=== PATIENT | female | born 1945 | race Asian ===

== ENCOUNTER → 2016-04-21 | Outpatient (CLI) | payer OTHER ==
--- NOTE | 2016-04-21 20:09 | US ---
Left Breast Ultrasound Indication: Palpable lump lower left breast. Increasing in size mass on mammograms. Technique: The left breast and left axilla were scanned with a high-resolution linear transducer by vladimir burgos research editor and me. Correlation made with mammograms and targeted physical exam. Comparison: Screening mammograms dated February 2012 and September 2012 and diagnostic mammograms perform ed April 21, 2016. Findings: The palpable mass in the anterior lower left breast 5 o'clock position, 2.4 x 2.2 x 1.5 cm contains echogenic microcalcifications and intraluminal blood flow on color Doppler imaging. No addit ional nodules throughout the surveyed left breast. No enlarged lymph nodes in the axilla. Impression: Suspicious 2.4 cm mass left breast corresponds to the palpable lump. BI-RADS 5: Highly Suspicious For Malignancy. Recommendation: Proceed with left breast ultrasound-guided core biopsy. I discussed the findings and recommendations with the patient. She plans on proceeding with ultrasound-guided breast biopsy. The findings and recommendations were discussed with Dr. Sonia Mullins shortly after study completion a t 5:00 PM today. An order for left breast ultrasound-guided biopsy can be faxed to [phone].
--- NOTE | 2016-04-21 20:11 | MA ---
Digital Mammogram Left Breast With iCAD Analysis Clinical Indications: Palpable mass lower left breast. Technique: Standard cephalocaudal projection is obtained. Digital breast tomosynthesis was performed in the MLO projection with reconstruction at 1.0 mm slice thickness and composite MLO views reconstru cted. This examination is processed by the iCAD computer aided detection system. Comparison: Mammograms dated September 30, 2015 and February 26, 2012 Breast density: Type C: Heterogeneously dense. Findings: CAD was reviewed. A lobulated 2.5 x 2.0 cm mass, containing heterogeneous pleomorphic micro calcifications in the anterior left breast 6 o'clock position has increased in size since September 2015 ( previously measured 2.0 x 1.2 cm). The left mammograms are otherwise negative. No discernible enlarge d lymph nodes in the axilla. Impression: Suspicious mass in the lower anterior left breast, containing pleomorphic microcalcificat ions, has increased in size since September 2015. BI-RADS 5: Highly Suspicious For Malignancy. Recommendation: Proceed with left breast ultrasound today to optimally characterize and correlate wit h palpable abnormality. [facility] will send a result letter to the patient. Negative mammography should not preclude additional workup of a clinically suspicious finding. The patient's information is entered into a reminder system with a target due date for her next mammo gram.
== END ==
LOC: FIMAGING 15:11
PROVIDERS: ATTEND Family Medicine
DX: Z12.39 Encounter for other screening for malignant neoplasm of breast (principal); N63 Unspecified lump in breast
CPT/HCPCS: 76641; G0206; G0279

== ENCOUNTER → 2016-05-06 | Outpatient (CLI) | payer OTHER ==
--- NOTE | 2016-05-06 12:31 | US ---
Vacuum-Assisted Ultrasound-Guided Core Biopsy Left Breast History: Mass 5 o'clock radial 2 cm from the nipple Technique: Following informed consent, the mass within the 5 o'clock position of the left breast, 2 cm from the nipple was localized, from the outer approach. The skin was marked and then prepped and d raped in sterile fashion. Following local anesthesia with 1% lidocaine, lidocaine mixed with epinephr ine was injected deeper within the breast tissue. A small skin dev was placed on the skin surface, through which the 12-gauge Suros vacuum-assisted core biopsy needle was advanced with ultrasound guid ance to the deep margin of the mass. Numerous core biopsy samples were obtained through the mass. A [employer] titanium clip was then placed in the biopsy bed. Marcaine was then injected at the biopsy site f or prolonged analgesia. Hemostasis was obtained, a sterile pressure dressing was applied and the ele ent sent for a postprocedural mammogram to document clip placement and to observe for postprocedural hematoma formation. She was then discharged without complication, with instructions to call us with a ny thoughts, complications or concerns. Impression: 1. Successful ultrasound-guided core biopsy of mass left breast 5 o'clock position. 2. Successful deployment of Suros titanium clip positioned immediately adjacent to the biopsy site.
--- NOTE | 2016-05-06 13:01 | MA ---
Diagnostic Digital Left Mammogram History: Post ultrasound-guided breast biopsy. Comparison: April 21, 2016. Technique: 2 views of the left breast. Density: B Findings: There is no postprocedural hematoma. This arose clip is present at the lower inner margin o f the patient's mass.. Impression: Excellent postprocedural mammogram.. Recommendation: The patient's initial mammogram and ultrasound are extremely worrisome for breast mal ignancy possibly mucinous or colloid carcinoma. A negative biopsy result should not defer surgical co nsultation in this patient. BI-RADS 5. Highly suspicious imaging for breast malignancy.
[2016-05-15 08:24] LABS: ACCESSION # HR17-5796 (()); INTERPRETATION See Comments (())
[2016-05-20 12:16] LABS: HER2 FISH RESULT SUMMARY Negative
[2016-05-20 12:19] LABS: FIXATIVE Formalin; HER2 FISH TISSUE ID 17S-363-A1
== END ==
LOC: FIMAGING 11:31
PROVIDERS: ATTEND Family Medicine
PROC: 0HBU3ZX Excision of Left Breast, Percutaneous Approach, Diagnostic (ICD-10-PCS; principal; 2016-05-06)
PROC: BH01ZZZ Plain Radiography of Left Breast (ICD-10-PCS; 2016-05-06)
DX: C50.912 Malignant neoplasm of unspecified site of left female breast (principal); R92.0 Mammographic microcalcification found on diagnostic imaging of breast; Z17.0 Estrogen receptor positive status [ER+]
CPT/HCPCS: 19083; 88305; 88341; 88342; 88360; 88361; G0206

== ENCOUNTER → 2016-06-03 | Outpatient (CLI) | payer OTHER | LOC: FIMAGING 09:36 | PROVIDERS: ATTEND Surgery | PROC: C71L1ZZ Planar Nuclear Medicine Imaging of Upper Chest Lymphatics using Technetium 99m (Tc-99m) (ICD-10-PCS; principal; 2016-06-03) | DX: C50.912 Malignant neoplasm of unspecified site of left female breast (principal) | CPT/HCPCS: 78195; A9520 ==

== ENCOUNTER → 2016-08-13 | Outpatient (CLI) | payer OTHER | LOC: FIMAGING 10:18 | PROVIDERS: ATTEND Internal Medicine Hematology & Oncology | DX: Z13.820 Encounter for screening for osteoporosis (principal); M81.0 Age-related osteoporosis without current pathological fracture; Z78.0 Asymptomatic menopausal state ==

== ENCOUNTER → 2017-05-20 | Outpatient (CLI) | payer OTHER | LOC: FIMAGING 08:51 | PROVIDERS: ATTEND Family Medicine | DX: N63.20 Unspecified lump in the left breast, unspecified quadrant (principal); Z85.3 Personal history of malignant neoplasm of breast ==

== ENCOUNTER → 2017-06-02 | Outpatient (CLI) | payer OTHER | LOC: FIMAGING 08:16 | PROVIDERS: ATTEND Surgery | PROC: C71L1ZZ Planar Nuclear Medicine Imaging of Upper Chest Lymphatics using Technetium 99m (Tc-99m) (ICD-10-PCS; principal; 2017-06-02) | DX: C50.919 Malignant neoplasm of unspecified site of unspecified female breast (principal) | CPT/HCPCS: 78195; A9520 ==

== ENCOUNTER 2017-10-22 12:33 | Inpatient (IN) | payer OTHER ==
[2017-10-22] MEDS ORDERED: HYDROmorphONE/DILAUDID 2 MG/ML INJ IVP ONE ×2 (12:53→15:10)
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
[2017-10-22] MEDS ORDERED: IOPAMIDOL (ISOVUE-300) 100 ML BTL ONE ×2 (13:32→16:37)
--- NOTE | 2017-10-22 15:59 | PDPROPOC ---
Sedation Plan of Care Sedation Plan of Care: vital signs stable, mental status noted, patient educated of risks, benefits, alternatives, patient can tolerate sedation ASA Classification: ASA 3 Planned drugs: fentanyl, midazolam Mallampati Score: Class 1 Mallampati Reference Image: Patient passed 3-3-2 rule?: Yes
--- NOTE | 2017-10-22 15:59 | PDHPUP ---
History & Physical Update H&P update statement: This history and physical update is based on an assessment of the patient which was completed after admission or registration (within 24 hours), but prior to the surgery/procedure. H&P update: H&P reviewed & patient examined (Active extravasation splenic hemorrhage; plan for transarterial embolization), no change in patient's condition since H&P completed
[2017-10-22] MEDS ORDERED: ONDANSETRON 4 MG/2 ML VIAL ONE (16:13)
[2017-10-22] MEDS ORDERED: fentaNYL 100 MCG/2 ML INJ IVP PRN (16:13)
[2017-10-22] MEDS ORDERED: NALOXONE HCL 0.4 MG/ML INJ ONE (16:13)
[2017-10-22] MEDS ORDERED: NALOXONE HCL 0.4 MG/ML INJ IVP PRN ×2 (16:13→18:05)
[2017-10-22] MEDS ORDERED: MEPERIDINE 25 MG/ML SYR IVP PRN (16:13)
[2017-10-22] MEDS ORDERED: FLUMAZENIL 0.5 MG/5 ML MDV IVP ONE (16:14)
[2017-10-22] MEDS ORDERED: fentaNYL 100 MCG/2 ML INJ ONE (16:14)
[2017-10-22] MEDS ORDERED: MIDAZOLAM 2 MG/2 ML VIAL ONE (16:14)
[2017-10-22] MEDS ORDERED: NS 1,000 ML IV SCH (16:15)
[2017-10-22] MEDS ORDERED: LIDOCAINE 1% 300 MG/30 ML SDV ONE (17:01)
--- NOTE | 2017-10-22 17:41 | PDRADPN ---
Radiology Procedure Note Date of Procedure: 10/22/17 Radiologist: Elias Adams Anesthesia: Other (Specify) (Fentanyl) Pre-op Diagnosis: Trauma; splenic laceration Post-op Diagnosis: Trauma; splenic laceration Indication: Active extravasation splenic laceration Procedure: Transarterial embolization Finding(s): Successful superselective embolization of midpole splenic artery hemorrhage resulting in hemostasis and resolution of hemorrhage. 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 Post embolization syndrome of pain, low grade fever, nausea/ vomiting should subside in 24/48 hours. Inf/Abcess present in the surg proc area at time of surgery?: No
[2017-10-22] MEDS ORDERED: ACETAMINOPHEN 325 MG TAB PO PRN (18:05)
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
[2017-10-22] MEDS ORDERED: KETAMINE 500 MG in D5W 500 ML IV SCH (18:15)
[2017-10-22] MEDS: IBUPROFEN 600 MG TAB PO PRN (20:02)
[2017-10-22] MEDS: ONDANSETRON 4 MG/2 ML VIAL IVP PRN (20:05)
[2017-10-23] MEDS: ONDANSETRON 4 MG/2 ML VIAL IVP PRN (07:54)
[2017-10-23] MEDS ORDERED: HYDROCODONE/APAP 5/325 TAB PO PRN (09:17)
[2017-10-23] MEDS: IBUPROFEN 600 MG TAB PO PRN (09:17)
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
[2017-10-23] MEDS: ENOXAPARIN 40 MG/0.4 ML SYR SC SCH (09:50)
[2017-10-23] MEDS: FAMOTIDINE 20 MG TAB PO SCH ×2 (09:51→21:44)
--- NOTE | 2017-10-23 13:50 | SOAPPROG ---
Downtime Inpatient MD Late Entry SOAP Note: Trauma Services FU/update MRI cervical spine reviewed and discussed with Dr. Contreras She has a fracture through her prior fusion at C5-6 in addition to nondisplaced oblique fractures through the posterior-superior aspect of T1-T2. The posterior longitudinal ligament appears disrupted at C5-6 with extensive edema indicating soft tissue injury. Will place patient in a hard cervical collar and consult Neurosurgery. Rogerio Davidson MD, FACS
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
[2017-10-24] MEDS: FAMOTIDINE 20 MG TAB PO SCH ×2 (09:20→22:06)
[2017-10-24] MEDS: ENOXAPARIN 40 MG/0.4 ML SYR SC SCH (09:20)
[2017-10-24] MEDS: oxyCODONE IR 5 MG TAB PO PRN ×2 (09:20→23:43)
[2017-10-24] MEDS: CYCLOBENZAPRINE 10 MG TAB PO SCH ×3 (09:20→22:06)
[2017-10-24] MEDS: HYDROmorphONE/DILAUDID 1 MG/ML INJ IVP PRN (10:41)
[2017-10-24] MEDS: IBUPROFEN 600 MG TAB PO SCH ×3 (12:18→23:44)
[2017-10-24] MEDS: LIDOCAINE 4%/MENTHOL 1% PATCH TD SCH (14:06)
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
[2017-10-24] MEDS: PATCH REMOVAL 1 EA PATCH TD SCH (21:00)
[2017-10-25] MEDS: IBUPROFEN 600 MG TAB PO SCH ×3 (06:03→17:28)
[2017-10-25] MEDS: LIDOCAINE 4%/MENTHOL 1% PATCH TD SCH (07:27)
[2017-10-25] MEDS: oxyCODONE IR 5 MG TAB PO PRN ×3 (07:27→16:11)
[2017-10-25] MEDS: ENOXAPARIN 40 MG/0.4 ML SYR SC SCH (07:28)
[2017-10-25] MEDS: FAMOTIDINE 20 MG TAB PO SCH (08:34)
[2017-10-25] MEDS: CYCLOBENZAPRINE 10 MG TAB PO SCH ×2 (08:34→16:11)
[2017-10-25] MEDS: SENNOSIDES/DOCUSATE SODIUM TAB PO SCH (11:35)
[2017-10-25] MEDS ORDERED: LIDOCAINE 1% 5 ML SDV ONE (16:05)
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
[2017-10-25] MEDS ORDERED: MIDAZOLAM 2 MG/2 ML VIAL IVP ONE (19:45)
[2017-10-25] MEDS ORDERED: fentaNYL 100 MCG/2 ML INJ IVP ONE (19:45)
[2017-10-25] MEDS ORDERED: LIDOCAINE 2% 5 ML SDV IF ONE (19:45)
[2017-10-25] MEDS: PATCH REMOVAL 1 EA PATCH TD SCH (20:30)
[2017-10-25] MEDS ORDERED: LIDOCAINE 1% 300 MG/30 ML SDV ONE (20:54)
--- NOTE | 2017-10-25 21:28 | POSTOPPROG ---
Post Op Note Date of Operation: 10/25/17 Surgeon: Yanick Fan Anesthesia: IV Sedation, Local (Specify) Pre-op Diagnosis: LEFT HEMOTHORAX Post-op Diagnosis: SAME Indication: SOB Procedure: LEFT TUBE THORACOSTOMY WITH IV SEDATION Findings: 0VER 700 CC HEMOTHORAX Inf/Abcess present in the surg proc area at time of surgery?: No Depth: Organ Space EBL: Minimal Complications: 0 Drains: Constavac
[2017-10-26] MEDS: IBUPROFEN 600 MG TAB PO SCH ×4 (00:07→18:12)
[2017-10-26] MEDS: FAMOTIDINE 20 MG TAB PO SCH ×3 (00:07→20:19)
[2017-10-26] MEDS: SENNOSIDES/DOCUSATE SODIUM TAB PO SCH ×4 (00:07→20:20)
[2017-10-26] MEDS: CYCLOBENZAPRINE 10 MG TAB PO SCH ×4 (00:08→20:20)
[2017-10-26] MEDS: oxyCODONE IR 5 MG TAB PO PRN ×4 (00:09→22:34)
[2017-10-26 06:32] LABS: PLATELET COUNT 158 10^3/uL (150-400)
[2017-10-26] MEDS: LIDOCAINE 4%/MENTHOL 1% PATCH TD SCH (09:16)
[2017-10-26] MEDS: ENOXAPARIN 40 MG/0.4 ML SYR SC SCH (09:24)
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
[2017-10-26] MEDS ORDERED: LACTULOSE 20 GM/30 ML UDCUP PO PRN (17:02)
[2017-10-26] MEDS ORDERED: MAGNESIUM HYDROXIDE 30 ML UDCUP PO PRN (17:02)
[2017-10-26] MEDS ORDERED: BISACODYL 10 MG SUPP PR PRN (17:02)
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
[2017-10-26] MEDS: POLYETHYLENE GLYCOL 3350 17 GM PKT PO PRN (18:21)
[2017-10-26] MEDS: PATCH REMOVAL 1 EA PATCH TD SCH (20:31)
[2017-10-27] MEDS: HYDROmorphONE/DILAUDID 1 MG/ML INJ IVP PRN (00:24)
[2017-10-27] MEDS: IBUPROFEN 600 MG TAB PO SCH ×4 (00:25→19:09)
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
[2017-10-27] MEDS: FAMOTIDINE 20 MG TAB PO SCH ×2 (09:06→20:27)
[2017-10-27] MEDS: LIDOCAINE 4%/MENTHOL 1% PATCH TD SCH (09:06)
[2017-10-27] MEDS: CYCLOBENZAPRINE 10 MG TAB PO SCH ×3 (09:06→21:27)
[2017-10-27] MEDS: ENOXAPARIN 40 MG/0.4 ML SYR SC SCH (09:06)
[2017-10-27] MEDS: SENNOSIDES/DOCUSATE SODIUM TAB PO SCH ×4 (09:08→20:27)
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
[2017-10-27] MEDS: PATCH REMOVAL 1 EA PATCH TD SCH (20:27)
[2017-10-28] MEDS: IBUPROFEN 600 MG TAB PO SCH ×4 (01:08→19:08)
[2017-10-28] MEDS: LIDOCAINE 4%/MENTHOL 1% PATCH TD SCH (08:37)
[2017-10-28] MEDS: SENNOSIDES/DOCUSATE SODIUM TAB PO SCH ×2 (08:37→20:38)
[2017-10-28] MEDS: oxyCODONE IR 5 MG TAB PO PRN (08:37)
[2017-10-28] MEDS: CYCLOBENZAPRINE 10 MG TAB PO SCH ×3 (08:37→20:38)
[2017-10-28] MEDS: FAMOTIDINE 20 MG TAB PO SCH ×2 (08:37→20:38)
[2017-10-28] MEDS: ENOXAPARIN 40 MG/0.4 ML SYR SC SCH (08:38)
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
[2017-10-28] MEDS ORDERED: ZOLPIDEM TARTRATE 5 MG TAB PO PRN (14:12)
--- NOTE | 2017-10-28 16:47 | ASMTCMCOM ---
CM Note CM Note Notes: Today PT/OT rec SNF. Referral sent to [facility] who can accept pt. Pt verbalizes reluctance to SNF, states she is improving daily and "needs to improve mentally" before going home. Pt reports unable to assist her at home due to his own medical issues. There are no other friends/family who can help consistently. Informed pt nothing needs to be decided today, she can talk to who was not present and CM will follow tomorrow. Date Signed: 10/28/2017 04:46 PM Electronically Signed By:MELISSA Barboza
[2017-10-28] MEDS: PATCH REMOVAL 1 EA PATCH TD SCH (21:29)
[2017-10-29] MEDS: IBUPROFEN 600 MG TAB PO SCH ×2 (00:16→06:44)
[2017-10-29] MEDS: ENOXAPARIN 40 MG/0.4 ML SYR SC SCH (08:10)
[2017-10-29] MEDS: FAMOTIDINE 20 MG TAB PO SCH ×2 (08:15→21:43)
[2017-10-29] MEDS: SENNOSIDES/DOCUSATE SODIUM TAB PO SCH ×2 (08:15→21:45)
[2017-10-29] MEDS: CYCLOBENZAPRINE 10 MG TAB PO SCH ×3 (08:16→21:43)
[2017-10-29] MEDS: LIDOCAINE 4%/MENTHOL 1% PATCH TD SCH (08:18)
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
[2017-10-29] MEDS: KETOROLAC 15 MG/1 ML SDV IVP SCH ×2 (12:04→17:46)
--- NOTE | 2017-10-29 13:34 | GOP ---
[f rep st] OPERATIVE REPORT DATE OF OPERATION: 10/25/2017 SURGEON: Yanick Fan MD PREOPERATIVE DIAGNOSIS: Left hemothorax. POSTOPERATIVE DIAGNOSIS: Left hemothorax. PROCEDURE PERFORMED: Left tube thoracostomy with intravenous sedation. FINDINGS: Hemothorax, left DESCRIPTION OF PROCEDURE: Patient was consented. She was then prepped and draped in the usual sterile fashion. She was given IV sedation with Versed and fentanyl. Short incision was made in the anterior axillary line in the 6th intercostal space. Dissection extended through the subcutaneous tissue using 1 % Xylocaine local infiltration and through the intercostal muscles into the left chest. We evacuated over 800 cc of old blood. A #28-Jamaican chest tube was placed in the thorax and directed posteriorly. It was secured to the skin with a 2-0 silk suture and connected to Pleur-Evac drainage system. She tolerated the procedure quite well. There were no complications. /[id number]/MODL MTDD
--- NOTE | 2017-10-29 15:59 | ASMTCMCOM ---
CM Note CM Note Notes: PT/OT continue to rec SNF. today pt and Quang agree pt will benefit from rehab at [facility]. Updated Rea at [facility] and she states they have bed availability for when pt medically stable D/c plan of care: [facility] SNF when medically stable. Date Signed: 10/29/2017 03:58 PM Electronically Signed By:MELISSA Barboza
[2017-10-29] MEDS: POLYETHYLENE GLYCOL 3350 17 GM PKT PO PRN (16:39)
[2017-10-29] MEDS: PATCH REMOVAL 1 EA PATCH TD SCH (22:48)
[2017-10-30] MEDS: KETOROLAC 15 MG/1 ML SDV IVP SCH ×4 (00:22→18:00)
[2017-10-30] MEDS: oxyCODONE IR 5 MG TAB PO PRN (06:12)
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
[2017-10-30] MEDS: FAMOTIDINE 20 MG TAB PO SCH ×2 (08:36→21:24)
[2017-10-30] MEDS: CYCLOBENZAPRINE 10 MG TAB PO SCH ×3 (08:36→21:24)
[2017-10-30] MEDS: SENNOSIDES/DOCUSATE SODIUM TAB PO SCH ×2 (08:37→21:26)
[2017-10-30] MEDS: LIDOCAINE 4%/MENTHOL 1% PATCH TD SCH (08:37)
[2017-10-30] MEDS: ENOXAPARIN 40 MG/0.4 ML SYR SC SCH (08:38)
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
[2017-10-30] MEDS: PATCH REMOVAL 1 EA PATCH TD SCH (21:25)
[2017-10-31] MEDS: KETOROLAC 15 MG/1 ML SDV IVP SCH ×3 (00:38→11:46)
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
[2017-10-31] MEDS: CYCLOBENZAPRINE 10 MG TAB PO SCH ×2 (09:18→16:10)
[2017-10-31] MEDS: ENOXAPARIN 40 MG/0.4 ML SYR SC SCH (09:18)
[2017-10-31] MEDS: FAMOTIDINE 20 MG TAB PO SCH (09:18)
[2017-10-31] MEDS: LIDOCAINE 4%/MENTHOL 1% PATCH TD SCH (09:19)
[2017-10-31] MEDS: SENNOSIDES/DOCUSATE SODIUM TAB PO SCH (09:25)
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
[2017-10-31 15:46] VITALS: BP 108/70
--- NOTE | 2017-10-31 16:20 | ASMTLACE ---
LACE Length of stay for Answers: 7-13 days current admission Acuity / Level of Answers: Yes Care: Did the patient have an inpatient admission? Comorbidities - select Answers: Any tumor (including all that apply lymphoma or leukemia) # of Emergency department Answers: 1-2 visits in the last 6 months Score: 11 Date Signed: 10/31/2017 04:19 PM Electronically Signed By:Kristie Palacios RN
--- NOTE | 2017-10-31 16:25 | ASMTCMCOM ---
CM Note CM Note Notes: Chart reviewed. DC ordered. Called family contacts. Got a return call from patient's daughter. The family was under the impression that dc would be delayed but in fact the discharge was written for early this am. Confirmed with MD that patient is clear for discharge to [facility]. Call to [facility] and transport set up for 4:14 pm. All orders via allscripts. Daughter in room and aware of transition to SNF. CM available should other needs arise. Plan: DC to SNF rehab via wheelchair van. Date Signed: 10/31/2017 04:24 PM Electronically Signed By:Kristie Palacios RN
== END 2017-10-31 17:18 | DRG 958 ==
LOC: EDBD → EDUNIT# → OBSVTOIN 18:10 → F2N 18:11 → F3N 10-28 09:25
PROVIDERS: ADMIT Surgery; ATTEND Surgery
PROC: 04L Lower Arteries, Occlusion (ICD-10-PCS; principal; 2017-10-22)
PROC: B4131ZZ Fluoroscopy of Splenic Arteries using Low Osmolar Contrast (ICD-10-PCS; principal; 2017-10-22)
PROC: 0W9B30Z Drainage of Left Pleural Cavity with Drainage Device, Percutaneous Approach (ICD-10-PCS; 2017-10-25)
DX: S36.031A Moderate laceration of spleen, initial encounter (principal); S27.2XXA Traumatic hemopneumothorax, initial encounter; S22.42XA Multiple fractures of ribs, left side, initial encounter for closed fracture; S12.490A Other displaced fracture of fifth cervical vertebra, initial encounter for closed fracture; S12.590A Other displaced fracture of sixth cervical vertebra, initial encounter for closed fracture; S16.1XXA Strain of muscle, fascia and tendon at neck level, initial encounter; S14.0XXA Concussion and edema of cervical spinal cord, initial encounter; D62 Acute posthemorrhagic anemia; J90 Pleural effusion, not elsewhere classified; E04.1 Nontoxic single thyroid nodule; V43.52XA Car driver injured in collision with other type car in traffic accident, initial encounter; Y92.413 State road as the place of occurrence of the external cause; Z98.1 Arthrodesis status; Z85.3 Personal history of malignant neoplasm of breast
CPT/HCPCS: 82435-PO; 82565-PO; 82947-PO; 84132-PO; 84295-PO; 84520-PO; 85014-PO; 96374; 97116-GP; 97162-GP; 97166-GO; 97530-GO; 97530-GP; 97535-GO; C1769; C1894; G8978-GP-CK; G8979-GP-CJ; G8987-GO-CK; G8988-GO-CI; J1170; J1644; J1650; J1885; J2250; J2310; J2405; J3010; Q9967

== ENCOUNTER → 2017-12-20 | Outpatient (CLI) | payer OTHER | LOC: FIMAGING 11:26 | PROVIDERS: ATTEND Physician Assistant | DX: S12.400D Unspecified displaced fracture of fifth cervical vertebra, subsequent encounter for fracture with routine healing (principal); M40.202 Unspecified kyphosis, cervical region; Z98.1 Arthrodesis status ==

== ENCOUNTER → 2018-02-04 | Outpatient (CLI) | payer OTHER | LOC: FIMAGING 09:10 | PROVIDERS: ATTEND Neurological Surgery | DX: S12.400D Unspecified displaced fracture of fifth cervical vertebra, subsequent encounter for fracture with routine healing (principal); M40.202 Unspecified kyphosis, cervical region; M48.02 Spinal stenosis, cervical region ==

== ENCOUNTER → 2018-02-10 | Outpatient (CLI) | payer OTHER | LOC: FIMAGING 12:14 | PROVIDERS: ATTEND Neurological Surgery | DX: S12.600A Unspecified displaced fracture of seventh cervical vertebra, initial encounter for closed fracture (principal) ==

== ENCOUNTER → 2018-02-17 | Outpatient (CLI) | payer OTHER | LOC: FIMAGING 11:51 | PROVIDERS: ATTEND Internal Medicine Pulmonary Disease | DX: S22.42XA Multiple fractures of ribs, left side, initial encounter for closed fracture (principal) ==

== ENCOUNTER → 2018-03-26 | Outpatient (CLI) | payer OTHER | LOC: FIMAGING 10:23 | PROVIDERS: ATTEND Internal Medicine Pulmonary Disease | DX: R07.81 Pleurodynia (principal); S22.21XA Fracture of manubrium, initial encounter for closed fracture; S22.42XD Multiple fractures of ribs, left side, subsequent encounter for fracture with routine healing; I25.10 Atherosclerotic heart disease of native coronary artery without angina pectoris ==

== ENCOUNTER → 2018-08-25 | Outpatient (CLI) | payer OTHER | LOC: FIMAGING 13:44 | PROVIDERS: ATTEND Physician Assistant | DX: S12.600A Unspecified displaced fracture of seventh cervical vertebra, initial encounter for closed fracture (principal) ==